=== PATIENT | male | born 1995 | race Caucasian/White ===

== ENCOUNTER 2017-05-24 00:08 | Emergency (ER) | payer MEDICAID ==
[~2017-05-24] VITALS: Ht 165.1 cm; Wt 58.5 kg
[2017-05-24 00:13] VITALS: Ht 165.1 cm; Wt 58.5 kg
[2017-05-24] MEDS ORDERED: METHYLPREDNISOLONE 125 MG INJ IM ONE (02:00)
[2017-05-24] MEDS ORDERED: DIPHENHYDRAMINE 50 MG INJ IM ONE (02:00)
[2017-05-24] MEDS ORDERED: BEN50 PO (02:26)
[2017-05-24] MEDS ORDERED: PRED50TA PO (02:26)
[2017-05-24] MEDS ORDERED: TRIA15CR55 TOP (02:26)
--- NOTE | 2017-05-24 03:03 | ERD ---
ER Documentation Chief Complaint Date/Time DATE: 05/24/17 TIME: 03:00 Chief Complaint generalize body rash x 3 days HPI 22-year-old male presents to emergency department for complaints of rash over the body after cutting had some of the sap all over his skin. Patient is complaining of itching and a rash all over the body. Patient's complaining of burning pain 4/10 scale, is worse upon touching the area. Patient denies any lip swelling, tongue swelling or stridor. Patient denies any shortness of breath or wheezing. Patient did not take any medication to help with symptoms. ROS All systems reviewed and are negative except as per history of present illness. Medications Home Meds Active Scripts Prednisone* (Prednisone*) 50 Mg Tablet, 50 MG PO DAILY, #5 TAB Prov:ALICE WU NP 05/24/17 Diphenhydramine Hcl* (Benadryl*) 50 Mg Cap, 50 MG PO Q6H Y for ITCHING/RASH, # 30 CAP Prov:ALICE WU NP 05/24/17 Triamcinolone Acetonide (Triamcinolone Acetonide) 0.1% - 15 Gm Cream.gm., 1 APPLIC TOP BID, #1 TUB Prov:ALICE WU NP 05/24/17 Allergies Allergies: Coded Allergies: No Known Drug Allergies (Verified Allergy, Unknown, 05/24/17) PMhx/Soc Medical and Surgical Hx: pt denies Medical Hx, pt denies Surgical Hx History of Surgery: No Hx Neurological Disorder: No Hx Respiratory Disorders: No Hx Cardiac Disorders: No Hx Psychiatric Problems: No Hx Miscellaneous Medical Probl: No Hx Alcohol Use: No Hx Substance Use: No Hx Tobacco Use: No Smoking Status: Current every day smoker FmHx Family History: No coronary disease, No diabetes, No other Physical Exam Vitals Vital Signs Date Time Temp Pulse Resp B/P Pulse Ox O2 Delivery O2 Flow Rate FiO2 05/24/17 00:13 97.7 65 20 122/71 98 Physical Exam GENERAL: The patient is well developed and appropriate for usual state of health, in no apparent distress. CHEST: Clear to auscultation bilaterally. There are no rales, wheezes or rhonchi. HEART: Regular rate and rhythm. No murmurs, clicks, rubs or gallops. No S3 or S4. ABDOMEN: Soft, nontender and nondistended. Good bowel sounds. No rebound or guarding. No gross peritonitis. No gross organomegaly or masses. No Mccrary sign or McBurney point tenderness. BACK: No midline or flank tenderness. EXTREMITIES: Equal pulses bilaterally. There is no peripheral clubbing, cyanosis or edema. No focal swelling or erythema. Full range of motion. Grossly neurovascularly intact. NEURO: Alert and oriented. Cranial nerves 2-12 intact. Motor strength in all 4 extremities with 5/5 strength. Sensation grossly intact. Normal speech and gait. SKIN: Maculopapular rash noted all over the body. There is no apparent ecchymosis or petechia. The skin is warm and dry. HEMATOLOGIC AND LYMPHATIC: There is no evidence of excessive bruising or lymphedema. No gross cervical, axillary, or inguinal lymphadenopathy. Results 24 hrs Current Medications Medications (Trade) Dose Ordered Sig/Renita Route PRN Reason Start Time Stop Time Status Last Admin Dose Admin Diphenhydramine HCl (Benadryl) 50 mg ONCE ONCE IM 05/24/17 02:00 05/24/17 02:01 DC 05/24/17 02:00 Methylprednisolone Sodium Succinate (Solu-Medrol) 125 mg ONCE ONCE IM 05/24/17 02:00 05/24/17 02:01 DC 05/24/17 02:00 Benadryl Solu-Medrol was given here in emergency department, tolerated medication well, felt much better afterwards. Procedures/MDM Medical decision making: Patient symptoms is likely consistent with a contact dermatitis. Likely patient had a reaction after sap of poison [place]aqu[place] went into his skin. Patient does not have any symptoms of anaphylactic shock, no symptoms of any stridor or shortness of breath. No symptoms of any cellulitis. Patient was given for Benadryl, triamcinolone 1% cream, prednisone, is advised to follow-up with primary doctor 2-3 days for reevaluation of symptoms. Patient is advised to return to emergency department for any worsening symptoms. Disposition: Home. Stable. Departure Diagnosis: Primary Impression: Contact dermatitis Contact dermatitis type: irritant Contact dermatitis trigger: non-food plants Qualified Code: L24.7 - Irritant contact dermatitis due to plants, except food Condition: Stable Patient Instructions: Contact Dermatitis ALICE WU NP May 24, 2017 03:03
== END 2017-05-24 02:32 | disposition home or self-care (01) ==
LOC: FTE 00:08
DX: L24.7 Irritant contact dermatitis due to plants, except food (principal); F17.210 Nicotine dependence, cigarettes, uncomplicated
CPT/HCPCS: 96372; J1200; J2930; Z7502